=== PATIENT | male | born 1960 | race Caucasian/White ===

== ENCOUNTER 2025-07-24 12:35 | Outpatient (CLI) | payer OTHER, MEDICARE, SELFPAY ==
--- NOTE | 2025-07-24 13:00 | CRLHL7_ITS ---
For Patients: As a result of the Century Cures Act, medical imaging exams and procedure reports are released immediately into your electronic medical record. You may view this report before your referring provider. If you have questions, please contact your health care provider. INDICATION: Spinal stenosis. Compression fracture. COMPARISON: 05/17/2025. TECHNIQUE: Sagittal T1, T2, and STIR sequences. Axial T2/gradient sequences. FINDINGS: Kyphosis of the lower thoracic spine. Anterior wedging and greater than 70 percent loss of height of the T12 vertebral body with diffuse marrow edema. Finds consistent with the root recent, likely subacute compression fracture. Slight retropulsion of the posterior superior corner of the vertebral body measures approximately 3 mm in AP dimension. Chronic mild anterior wedging and less than 20 percent loss of height of the T11 vertebral body. No other fractures in the thoracic spine. Normal cord signal. No intradural mass or lesion. Thoracic spondylosis with multilevel disc degeneration and facet arthropathy. T10-11: Disc degeneration and posterior disc bulge. No spinal canal or neural foraminal narrowing. T11-12: Disc degeneration and posterior disc bulge. No narrowing of the spinal canal. No neural foraminal narrowing. No spinal canal or neural foraminal narrowing at the remaining levels of the thoracic spine. Normal paraspinal soft tissues. IMPRESSION: 1. Kyphosis of the lower thoracic spine. Subacute compression fracture of the T12 vertebral body with greater than 70 percent loss of height. Slight retropulsion of the posterior superior corner vertebral body. 2. Chronic mild loss of height of the T11 vertebral body. 3. No other fractures. 4. Normal cord signal. 5. Thoracic spondylosis. 6. No spinal canal or neural foraminal narrowing at all levels. Dictated by Mohsen Fuentes MD @ 07/24/2025 4:29:26 PM (Electronically Signed)
--- NOTE | 2025-07-24 13:45 | CRLHL7_ITS ---
For Patients: As a result of the Century Cures Act, medical imaging exams and procedure reports are released immediately into your electronic medical record. You may view this report before your referring provider. If you have questions, please contact your health care provider. INDICATION: Lumbar stenosis. COMPARISON: None. TECHNIQUE: Sagittal T1, T2, and STIR sequences. Axial T1 and T2 weighted sequences. FINDINGS: Normal vertebral body alignment. As seen on the previous MRI of the thoracic spine, subacute compression fracture of the T12 vertebral body with greater than 70 percent loss of height in anterior wedging. Slight retropulsion of the posterior superior corner measured approximately 3 mm in AP dimension. No fractures in the lumbar spine. No ligamentous injury. No suspicious osseous lesions. Normal conus terminates at L1-2. T12-L1 L1-2: No spinal canal or neural foraminal narrowing. L2-3: Disc degeneration and posterior disc bulge. Mild narrowing of the spinal canal. No neural foraminal narrowing. L3-4: Disc degeneration posterior disc bulge. No narrowing of the spinal canal. No neural foraminal narrowing. L4-5: Disc degeneration and diffuse disc bulge eccentric to the left. No narrowing of spinal canal. No neural foraminal narrowing. Mild facet arthropathy. L5-S1: Disc degeneration loss disc height. Modic type 1 endplate changes. Diffuse disc bulge and endplate osteophytic ridging. No narrowing of the spinal canal. No impingement of the traversing S1 nerve roots. No neural foraminal narrowing. Mild facet arthropathy. Normal visualized SI joints. IMPRESSION: 1. Normal alignment. 2. As seen on the MRI of the thoracic spine performed on the same day, subacute compression fracture of T12 with anterior wedging greater than 70 percent loss of height. Slight retropulsion of the posterior superior corner. 3. No other fractures. 4. At L5-S1, disc degeneration. Diffuse disc bulge and endplate osteophytic ridging. No narrowing of the spinal canal. No neural foraminal narrowing. 5. No spinal canal or neural foraminal narrowing at the remaining levels Dictated by Mohsen Fuentes MD @ 07/24/2025 4:33:51 PM (Electronically Signed)
== END 2025-07-24 12:36 | disposition home or self-care (01) ==
LOC: MRI 12:36
PROVIDERS: Visit Provider Family Medicine
DX: M48.061 Spinal stenosis, lumbar region without neurogenic claudication (principal); M51.379 Other intervertebral disc degeneration, lumbosacral region without mention of lumbar back pain or lower extremity pain; S22.080A Wedge compression fracture of T11-T12 vertebra, initial encounter for closed fracture; M47.894 Other spondylosis, thoracic region; M54.50 Low back pain, unspecified
CPT/HCPCS: 72146; 72148